=== PATIENT | male | born 1955 | race Caucasian/White ===

== ENCOUNTER 2020-07-25 09:01 | Outpatient (CLI) | payer MEDICARE, OTHER | END 2020-07-25 09:02 | disposition home or self-care (01) | LOC: DTY/OP 09:01 | PROVIDERS: ATTEND Physician Assistant | DX: E11.65 Type 2 diabetes mellitus with hyperglycemia (principal) | CPT/HCPCS: 97802 ==

== ENCOUNTER 2020-07-28 08:26 | Outpatient (CLI) | payer MEDICARE, OTHER | END 2020-07-28 08:27 | disposition home or self-care (01) | LOC: BICCT 08:26 | PROVIDERS: ATTEND Physician Assistant | DX: Z13.6 Encounter for screening for cardiovascular disorders (principal); Z12.2 Encounter for screening for malignant neoplasm of respiratory organs; Z87.891 Personal history of nicotine dependence; S22.31XA Fracture of one rib, right side, initial encounter for closed fracture; Q85.9 Phakomatosis, unspecified | CPT/HCPCS: 71271; 76775 ==

== ENCOUNTER 2021-08-01 08:04 | Outpatient (CLI) | payer MEDICARE, OTHER | END 2021-08-01 08:05 | disposition home or self-care (01) | LOC: BICCT 08:04 | PROVIDERS: ATTEND Physician Assistant | DX: Z12.2 Encounter for screening for malignant neoplasm of respiratory organs (principal); Z87.891 Personal history of nicotine dependence; Q85.8 Other phakomatoses, not elsewhere classified | CPT/HCPCS: 71271 ==

== ENCOUNTER 2023-08-13 08:10 | Outpatient (CLI) | payer MEDICARE | END 2023-08-13 08:11 | disposition home or self-care (01) | LOC: BICCT 08:10 | PROVIDERS: ATTEND Internal Medicine Critical Care Medicine | DX: Z12.2 Encounter for screening for malignant neoplasm of respiratory organs (principal); Z87.891 Personal history of nicotine dependence | CPT/HCPCS: 71271 ==